=== PATIENT | female | born 1950 | race Caucasian/White ===

== ENCOUNTER 2017-10-29 15:15 | Emergency (ER) | payer OTHER ==
[2017-10-29 17:14] LABS: Bilirubin Negative (Negative); Blood, Urine Negative (Negative); Clarity Clear (Clear); Glucose, Urine (Dipstick) Negative (Negative); Leukocyte Negative (Negative); Nitrite Negative (Negative); Protein, Urine (Dipstick) 30 mg/dL (Neg-Trace); Urobilinogen 0.2 mg/dL (0.2-1.0); pH, Urine 8.5 (5.0-9.0)
[2017-10-29 17:17] LABS: Bacteria/HPF Rare-Few HPF (None Seen); RBC/HPF 0-3 HPF (0-3); Squamous Epithelial 0-3 HPF (0-3); WBC/HPF 0-3 HPF (0-3); Yeast-All Forms Rare HPF (None Seen)
[2017-10-29 17:30] LABS: Band 1 % (5-11); Eosinophils 2 % (0-10); Hemoglobin 14.3 g/dL (12.0-16.0); Hypochromia SLIGHT = 6-15 cells (100X) (0-5/hpf); Lymphocytes 14 % (21-51); MDiff Complete? YES; Mean Corpuscular Hemoglobin 24.1 pg (27.0-31.0); Mean Corpuscular Volume 75.2 fL (78.0-98.0); Mean Platelet Volume 6.2 fL (7.4-10.4); Microcytosis SLIGHT = 6-15 cells (100X) (0-5/hpf); Monocytes 4 % (0-10); Neutrophil 79 % (42-75); Platelet Count 159 thou/uL (130-400); RBC Distribution Width 12.4 % (11.5-14.5); Red Blood Cell (RBC) Count 5.92 mill/uL (4.20-5.40); White Blood Cell (WBC) Count 7.5 thou/uL (4.8-10.8)
--- NOTE | 2017-10-29 17:34 | RAD ---
PORTABLE CHEST 1 VIEW: Date: 10/29/17 Time: 1649 hours HISTORY: Dyspnea. FINDINGS: The heart size is enlarged. There is elevation of the right hemidiaphragm. The lungs are well expande d without lobar consolidation, pneumothoraces, benito pulmonary edema, or pleural effusions. There are degenerative changes in the spine. IMPRESSION: Cardiomegaly. POS: GRAY
[2017-10-29 17:42] LABS: CKMB 1.1 ng/mL (0-6.6); Troponin I 0.016 ng/mL (< 0.028)
[2017-10-29 17:43] LABS: ALT (SGPT) 17 U/L (8-55); AST (SGOT) 18 U/L (5-34); Albumin 4.1 g/dL (3.4-4.8); Alkaline Phosphatase 105 U/L (40-150); Anion Gap 16 mmol/L (10-20); BUN (Urea Nitrogen) 16 mg/dL (9.8-20.1); Bilirubin, Total 0.6 mg/dL (0.2-1.2); Calc. Creatinine Clearance 0 mL/min (70-130); Calcium 9.4 mg/dL (7.8-10.44); Carbon Dioxide 22 mmol/L (23-31); Chloride 103 mmol/L (98-107); Estimated GFR-MDRD 68; Globulin 3.8 g/dL (2.4-3.5); Glucose 173 mg/dL (80-115); Lipase 26 U/L (8-78); Potassium 4.2 mmol/L (3.5-5.1); Protein, Total 7.9 g/dL (6.0-8.3); Sodium 137 mmol/L (136-145)
== END 2017-10-29 19:40 | disposition short-term general hospital (02) ==
LOC: MADERS 15:15
DX: R06.02 Shortness of breath (principal); R11.2 Nausea with vomiting, unspecified; E11.9 Type 2 diabetes mellitus without complications; F32.9 Major depressive disorder, single episode, unspecified; I10 Essential (primary) hypertension; E78.5 Hyperlipidemia, unspecified; Z79.4 Long term (current) use of insulin; Z79.899 Other long term (current) drug therapy
CPT/HCPCS: 36415; 36416; 71045; 80053; 81003; 81015; 82553; 83690; 84484; 85025; 85379; 93005; 94760